=== PATIENT | male | born 1960 ===

== ENCOUNTER 2022-12-21 06:12 | Day surgery (SDC) | payer BC, OTHER ==
[2022-12-19 11:01] LABS: Potassium 4.1 mEq/L (3.5-5.1)
--- NOTE | 2022-12-19 12:58 | EKG ---
Test Date: 2022-12-19 Test Time: 10:15:06 [employer] Coach: ARNAV MEASUREMENT RESULTS: Intervals: Rate: 50 AR: 160 QRSD: 80 QT: 384 QTc: 350 [place]: P: 44 AR: 160 QRS: 29 T: 32 INTERPRETIVE STATEMENTS: Sinus bradycardia with sinus arrhythmia Otherwise normal ECG Compared to ECG 05/19/2013 12:38:50 Ventricular premature complex(es) no longer present Electronically Signed On 12-19-22 12:57:48 CDT by Nakul Jackson
[2022-12-21] MEDS ORDERED: Ringers Lactate 1,000 ML IV ONE (06:53)
[2022-12-21] MEDS ORDERED: EPINEPHRINE/PF 1 MG/ML AMP ONE (07:13)
[2022-12-21] MEDS ORDERED: propofoL 200 MG/20 ML VIAL IV ONE ×2 (07:38)
[2022-12-21] MEDS ORDERED: GLYCOPYRROLATE 0.2 MG/ML SYR ONE (07:38)
[2022-12-21] MEDS ORDERED: LIDOCAINE 1% MPF 30 ML VIAL ONE (07:38)
[2022-12-21 10:14] VITALS: TEMP 97
[2022-12-21 10:17] VITALS: BP 107/69; O2SAT 96
== END 2022-12-21 09:04 | disposition home or self-care (01) ==
LOC: PRE 06:12 → OR 09:04
PROVIDERS: ATTEND Surgery
PROC: 0DJD8ZZ Inspection of Lower Intestinal Tract, Via Natural or Artificial Opening Endoscopic (ICD-10-PCS; principal; 2022-12-21 08:00)
DX: Z12.11 Encounter for screening for malignant neoplasm of colon (principal); Z86.010 Personal history of colon polyps; N42.9 Disorder of prostate, unspecified; K57.30 Diverticulosis of large intestine without perforation or abscess without bleeding; K64.8 Other hemorrhoids
CPT/HCPCS: 93005; 80048; 36415; J2704 ×2; J0171; J2001; J7120; G0105